=== PATIENT | female | born 1965 | race Caucasian/White ===

== ENCOUNTER → 2019-02-24 | Day surgery (SDC) | payer OTHER ==
[~2019-02-24] MED LIST: ASPI325T8 PO; GADOTERATE 7.5 MMOL/15ML VIAL. IVP ONE; GADOTERATE 7.5 MMOL/15ML VIAL. ONE; HYDROmorphone 2 MG/ML VIAL IV PRN; IBUP1TAB12 PO; IBUP200T44 PO; IV RINGERS,LACTATED 1000ML 1,000 ML IV SCH; LIDOCAINE 1% PF 2 ML VIAL. ID PRN; MIDAZOLAM HCL/PF 2 MG/2 ML VIAL. ONE; MORPHINE SULFATE 2 MG/ML VIAL. IV PRN; ONDANSETRON PF 4 MG/2 ML VIAL. IV PRN; PROCHLORPERAZINE 10 MG/2 ML VIAL. IV PRN; PROPOFOL 40 ML IV ONE; fentaNYL PF VIAL 100 MCG/2 ML VIAL IV PRN
[2019-02-24 12:32] VITALS: BP 116/82
--- NOTE | 2019-02-24 15:32 | RAD ---
MRI Brain with and without contrast History: TIA, migraine headache, dizziness Technique: Multiplanar, multi sequential pre and postcontrast MR imaging was performed of the brain. Comparison: None Findings: There is some motion degradation. There is no evidence of recent infarct or cytotoxic edema. The ventricles, sulci, and cisterns are within normal limits in size and configuration. There is no significant midline shift, intraaxial mass effect, or focal abnormal extra-axial fluid collection. There is no significant signal abnormality of the brain parenchyma. There is no nodular parenchymal or leptomeningeal enhancement. There is preservation of the major intracranial flow-voids at the skull base. The cerebellar tonsils are normal in location. There is no significant abnormality of the pineal gland or pituitary gland. There is complete opacification of the right frontal sinus with slightly heterogeneous signal features. There is near complete opacification of the right sphenoid sinus with peripheral mucosal thickening, more central somewhat heterogeneous signal features. There is large left maxillary sinus mucous retention cyst about 2.6 cm, some other smaller bilateral maxillary sinus mucous retention cysts also present. There is more confluent mucosal thickening/opacification anterior right ethmoid air cells. The mastoid air cells are aerated. There is preserved marrow signal of the clivus. Impression: 1. There is no significant intracranial abnormality. 2. There is complete opacification of the right frontal sinus and near complete opacification of the right sphenoid sinus, somewhat heterogeneous/complex signal features. There are bilateral maxillary sinus mucous retention cysts. Electronically signed by: Patrick Mackay MD (02/24/2019 3:29 PM) [id number]
== END ==
LOC: SURG 14:47
PROVIDERS: ATTEND Anesthesiology
DX: G45.9 Transient cerebral ischemic attack, unspecified (principal); G43.909 Migraine, unspecified, not intractable, without status migrainosus
CPT/HCPCS: 70553; A9575; J2250; J2704